=== PATIENT | male | born 1950 | race Caucasian/White ===

== ENCOUNTER → 2020-04-08 | Outpatient (CLI) | payer MEDICARE, OTHER ==
[~2020-04-08] MED LIST: FINA5TAB4 PO
== END | disposition home or self-care (01) ==
LOC: STAR 14:43
PROVIDERS: ATTEND Urology
DX: Z01.818 Encounter for other preprocedural examination (principal); N40.1 Benign prostatic hyperplasia with lower urinary tract symptoms; I45.10 Unspecified right bundle-branch block
CPT/HCPCS: 93005

== ENCOUNTER 2020-04-13 12:08 | Observation (INO) | payer MEDICARE, OTHER ==
[~2020-04-13] VITALS: Ht 167.6 cm; Wt 79.0 kg
[2020-04-13] MEDS ORDERED: CHLORHEXIDINE 15 ML UDC MM ONE (12:30)
[2020-04-13 12:33] VITALS: BP 110/72
[2020-04-13] MEDS ORDERED: AMOX-291 PO (12:38)
[2020-04-13] MEDS: LACTATED RINGERS 1,000 ML IV SCH ×3 (12:45→20:58)
[2020-04-13] MEDS ORDERED: LIDOCAINE-MPF 1%, 2ML INFIL ONE (13:00)
[2020-04-13] MEDS ORDERED: MIDAZOLAM 1 MG/ML, 2ML ONE (14:11)
[2020-04-13] MEDS ORDERED: SUCCINYLCHOLINE 20 MG/ML, 10ML ONE (14:12)
[2020-04-13] MEDS ORDERED: DEXAMETHASONE 4 MG/ML, 1ML ONE ×2 (14:12)
[2020-04-13] MEDS ORDERED: PROPOFOL 10 MG/ML, 20ML ONE (14:12)
[2020-04-13] MEDS ORDERED: ROCURONIUM 10MG/ML,5ML ONE (14:12)
[2020-04-13] MEDS ORDERED: FENTANYL PF 250 MCG/5ML ONE (14:12)
[2020-04-13] MEDS ORDERED: CEFAZOLIN PMX 2GM/50ML IVPB ONE (14:22)
[2020-04-13] MEDS ORDERED: DIAZEPAM 5 MG/ML, 2ML IVPush PRN (15:00)
[2020-04-13] MEDS ORDERED: MEPERIDINE/PF 25MG/0.5ML IVPush PRN (15:00)
[2020-04-13] MEDS ORDERED: HYDROmorphone 1 MG/ML, 1ML INJ IVPush PRN (15:00)
[2020-04-13] MEDS ORDERED: DIPHENHYDRAMINE 50 MG/ML, 1ML IVPush PRN (15:00)
[2020-04-13] MEDS ORDERED: ACETAMINOPHEN 325 MG TABLET PO PRN ×2 (15:00→22:00)
[2020-04-13] MEDS ORDERED: LABETALOL 5MG/ML, 20ML IV PRN (15:00)
[2020-04-13] MEDS ORDERED: FENTANYL PF 100 MCG/2ML IV PRN (15:00)
[2020-04-13] MEDS ORDERED: PROMETHAZINE 25 MG/ML, 1ML IVPush PRN (15:00)
[2020-04-13] MEDS ORDERED: ONDANSETRON 2MG/ML, 2ML IVPush PRN (15:00)
[2020-04-13] MEDS ORDERED: MIDAZOLAM 1 MG/ML, 2ML IV PRN (15:00)
[2020-04-13] MEDS ORDERED: PROMETHAZINE 12.5 MG SUPP PR PRN (15:00)
[2020-04-13] MEDS ORDERED: EPHEDRINE 50 MG/ML, 1ML IVPush PRN (15:00)
[2020-04-13] MEDS ORDERED: hydrALAzine 20 MG/ML, 1ML IV PRN (15:00)
[2020-04-13] MEDS ORDERED: OXYcodone 5 MG/5 ML ORAL.SOL UDC PO PRN (15:00)
[2020-04-13] MEDS ORDERED: ALBUTEROL SULFATE 2.5 MG/3 ML NPPB PRN (15:00)
[2020-04-13] MEDS ORDERED: hydrALAzine 20 MG/ML, 1ML ONE (17:30)
[2020-04-13 18:05] VITALS: BP 138/77
[2020-04-13] MEDS ORDERED: morphine SULFATE 10 MG/ML, 1ML IV PRN ×2 (18:30→18:33)
[2020-04-13] MEDS ORDERED: ONDANSETRON 2MG/ML, 2ML IV PRN (19:00)
[2020-04-13] MEDS ORDERED: OPIUM/BELLADONNA SUPP.RECT 16.2-30 MG PR PRN (19:00)
[2020-04-13] MEDS ORDERED: HYDROcodone/APAP 5/325 TABLET PO PRN (22:00)
[2020-04-13 23:43] VITALS: BP 123/71
[2020-04-14 03:08] VITALS: BP 138/76
[2020-04-14] MEDS: LACTATED RINGERS 1,000 ML IV SCH (04:56)
[2020-04-14 07:15] VITALS: BP 131/74
[2020-04-14 12:30] VITALS: BP 118/77
== END 2020-04-14 13:15 | disposition home or self-care (01) ==
LOC: OUT 12:08 → 4NE 17:55 → OUT 21:22 → 4NE 21:22 → DCLOUNGE 04-14 13:12
PROVIDERS: ADMIT Urology; ATTEND Urology
DX: Z03.818 Encounter for observation for suspected exposure to other biological agents ruled out (principal); N40.1 Benign prostatic hyperplasia with lower urinary tract symptoms; R33.9 Retention of urine, unspecified; N30.90 Cystitis, unspecified without hematuria; I10 Essential (primary) hypertension; M19.90 Unspecified osteoarthritis, unspecified site; Z87.440 Personal history of urinary (tract) infections; Z79.899 Other long term (current) drug therapy; Z87.891 Personal history of nicotine dependence; Z90.79 Acquired absence of other genital organ(s)
CPT/HCPCS: 36415; 53899; 87635; 88305; 88341; 88342; 96360; 96361; G0378; J0330; J0360; J0690; J1100; J2250; J2704; J3010; J7120